=== PATIENT | male | born 1960 | race Caucasian/White ===

== ENCOUNTER 2019-08-07 00:08 | Inpatient (IN) | payer MEDICARE ==
[~2019-08-07] VITALS: Ht 172.7 cm; Wt 78.1 kg
[~2019-08-07 00:08] MED LIST: Adult Low Dose81 MG PO; CELE400; CODACE30 PO; DIAZ5 PO; Glucosamine Ch1 EAC4 PO; HYDACE5325; HYDMOR2 PO; LISI5 PO; LORA10ER PO; MECL25 PO; META800; NAPR500 PO; OMEP20ER PO; OMEP40CA12 PO; RANITIDINE PO; Simvastatin20 MG PO; TRAM50 PO; ZYRTEC10 M1 PO; Zovirax Cream 5%2 GM
[2019-08-07 00:31] LABS: BASOPHILS ABSOLUTE AUTO 0.05 K/mm3 (0.00-0.23); BASOPHILS PERCENT AUTO 1 % (0-2); EOSINOPHILS ABSOLUTE AUTO 0.34 K/mm3 (0.00-0.68); EOSINOPHILS PERCENT AUTO 4 % (0-6); Hematocrit 48.3 % (37.0-53.0); Hemoglobin 15.7 g/dL (13.5-17.5); IMMATURE GRAN ABSOLUTE AUTO 0.04 K/mm3 (0.00-0.10); IMMATURE GRAN PERCENT AUTO 1 % (0-1); LYMPHOCYTES ABSOLUTE AUTO 2.22 K/mm3 (0.84-5.20); LYMPHOCYTES PERCENT AUTO 25 % (21-46); MONOCYTES ABSOLUTE AUTO 1.15 K/mm3 (0.16-1.47); MONOCYTES PERCENT AUTO 13 % (4-13); Mean Corpuscular HGB 29.2 pg (26.0-34.0); Mean Corpuscular HGB Conc 32.5 g/dL (31.5-36.5); Mean Corpuscular Volume 90 fL (80-100); Mean Platelet Volume 10.3 fL (9.1-12.4); NEUTROPHILS ABSOLUTE AUTO 5.04 K/mm3 (1.96-9.15); NEUTROPHILS PERCENT AUTO 57 % (41-73); Platelet Count 253 K/mm3 (150-400); RDW Coefficient Variation 12.9 % (11.7-14.2); RDW Standard Deviation 42.5 fL (35.1-46.3); Red Blood Cell Count 5.37 M/mm3 (4.30-5.90); White Blood Cell Count 8.84 K/mm3 (4.00-11.30)
[2019-08-07 00:48] LABS: Alanine Aminotransfer (ALT/SGP 39 U/L (12-78); Albumin, Blood 3.9 g/dL (3.4-5.0); Albumin/Globulin Ratio 1.1 (0.8-1.8); Alk Phos 98 U/L (50-136); Anion Gap 7 mmol/L (6-16); Aspartate Aminotrans (AST/SGOT 19 U/L (12-37); Bilirubin, Total 0.5 mg/dL (0.1-1.0); Blood Urea Nitrogen 28 mg/dL (8-24); CO2, Blood 27 mmol/L (21-32); Calcium, Blood 9.3 mg/dL (8.5-10.1); Chloride, Blood 108 mmol/L (98-108); Creatinine, Blood 1.22 mg/dL (0.60-1.20); Globulin, Blood 3.5 g/dL (2.2-4.0); Glomerular Filtration Rate >60 (60-); Glucose, Blood 99 mg/dL (70-99); Potassium, Blood 3.8 mmol/L (3.5-5.5); Sodium, Blood 142 mmol/L (136-145); Total Protein, Blood 7.4 g/dL (6.4-8.2); Troponin I <0.015 ng/mL (0.000-0.040)
--- NOTE | 2019-08-07 03:56 | NUR ---
BEGINNING SHIFT SUMMARY ASSUMED CARE OF PT AT 0245. PT IS ALERT AND ORIENTED, POLITE AND COOPERATIVE. HEAR SOUNDS REGULAR, ON TELE AT NSR @ 90 PER FORESTRY TECHNICIAN, PERIPHERAL PULSES STRONG, 18G IV IN L UPPER ARM. FINE CRACKLES AT THE BASES OF LUNGS, DENIES SOB. BOWEL TONES HYPERACTIVE, PT ON NPO FOR STRESS TEST TOMORROW. HX OF SKIN CANCER, GERD, HTN, AND HLD, DENIES HX OF HEART PROBLEMS IN HIS FAMILY. PT CAME TO THE ER BECAUSE HE WAS FEELING PAIN IN HIS CHEST, AFTER TAKING TUMS AND THEN FEELING THE PAIN IN HIS JAW, AND A "FUNNY FEELING" HE DECIDED TO COME TO THE ER. PT IS CURRENTLY TRYING TO FALL ASLEEP AND DENIES CHEST PAIN AT THIS TIME. CALL LIGHT IN REACH, BED IN LOWEST POSITION, WILL CONTINUE TO MONITOR.
--- NOTE | 2019-08-07 04:11 | NUR ---
CHEST PAIN PT CALLED THIS NURSE TO THE ROOM AND REPORTED STARTING HAVE CHEST PAIN HE WAS FALLING ASLEEP. PT STATED THIS WAS THE SAME FEELING HE HAD WHEN HE WAS AT HOME BEFORE HE CANE IN AND ITS MAKING HIM FEEL SICK NOW. PT STATES THE FEELING IS COMING AND GOING. CHARGE NURSE NOTIFIED, EKG IN PROGRESS.
--- NOTE | 2019-08-07 04:26 | NUR ---
EKG RESULTS EKG SHOWED NSR AT 60. PT STILL REPORTS HAVING CHEST PAIN BUT HE STATES IT MIGHT BE MORE LIKE GAS PAIN. PT HX OF GERD. CALL LIGHT IN REACH, BED IN LOWEST POSITION, WILL CONTINUE TO MONITOR.
--- NOTE | 2019-08-07 05:22 | NUR ---
END SHIFT SUMMARY PT STATES DAVE TTHEIR CHEST PAIN HAS GONE GONE DOWN FROM BEFORE. THIS NURSE CALLED THE HOSPITALIST AND SHE SAID TO MEDICATE PER EMAR AND TO CONTINUE TO MONITOR THE PT. PT IS CURRENTLY TRYING TO GO BACK TO SLEEP. CALL LIGHT IN REACH, BED IN LOWEST POSTION, WILL CONTINUE TO MONITOR UNTIL DAYSHIFT NURSE ARRIVES.
--- NOTE | 2019-08-07 09:32 | NUR ---
Chest pain Pt c/o chest pain 4-02/11 after having breakfast. Pt denies SOB, states it radiates down both arms and comes and goes. States "feel like burping" but has not burped. Dr. Montes notified, orders received.
--- NOTE | 2019-08-07 11:35 | NUR ---
Chest pain 04/13 Pt c/o chest pain 04/13. Charge nurse was notified. L/M on Dr. Jamel Montes's phone.
--- NOTE | 2019-08-07 12:19 | NUR ---
Upon responding to a rapid response call, I met patient's son Carlene in the hallway outside patient's room. Carlene is appropriately emotional in reaction to the mass of staff filling patient's room. I distracted Carlene with asking him questions about his upbringing, about patient's life and his relationship with Carlene and about his carlos background. I listened empathically, waited with Carlene until his mother came while patient went to surgery, , I provided companionship and prayer. Carlene responds well and thanks me for the time.
--- NOTE | 2019-08-07 14:23 | NUR ---
PT ARRIVED FROM SOCIAL WORKER DELINQUENCY PREVENTION AT 1406 VIA BED. FTF REPORT RECEIVED FROM JUAN FLORES. PT A&O X 3, CALM AND COOPERATIVE, STATING HE FEELS MUCH BETTER. 139/77, 62, 97% RA, 16. C/O 09/13 IN CHEST. INSTRUCTED PATIENT TO IMMEDIATELY REPORT ANY CHEST DISCOMFORT, NAUSEA, DIAPHORESIS, OR ANY OTHER SYMPTOMS TO NURSING IMMEDIATELY; VERBALIZED UNDERSTANDING. R HAND COOL (EQUAL TO L HAND), CAP REFILL < 3 SECONS. TR BAND INLATED TO 10 ML, SITE WNL, NO HEMATOMA OR BLEEDING NOTED.
--- NOTE | 2019-08-07 14:23 | NUR ---
DR. LOUIE AT BEDSIDE FOR UPDATE WITH PATIENT AND FAMILY. SHOWED PT AND FAMILY IMAGES OF PROCEDURE. EXPLAINED THAT THERE IS DISEASE ON THE L SIDE OF THE HEART WHICH WILL BE MEDICALLY MANAGED AT THIS TIME. PLAN IS FOR CARDIAC REHAB. PROVIDER STATED OK FOR PATIENT TO EAT AND DRINK, WANTS BEDREST WITH BR PRIVILEGES UNTIL TOMORROW MORNING. GAVE VERBAL ORDER FOR TROPONIN TO BE DRAWN NOW, IN 4 HOURS, AND TOMORROW MORNING.
--- NOTE | 2019-08-07 15:10 | NUR ---
CARDIAC ECHO COMPLETE.
--- NOTE | 2019-08-07 15:19 | NUR ---
eCHOCARDIOGRAM COMPLETED.
--- NOTE | 2019-08-07 15:29 | NUR ---
Spiritual care visit conducted. Patient is sitting up in bed and eating a sandwich. Patient's ex-, son, Carlene and niece are bedside. Patient tells me what he remembers from his medical event and surgery. We take time to pray and thank God for the blessing of having the patient with us this afternoon. We also remember the staff that worked so hard on the patient's behalf as well. There is much melvin and laughter in the room. I will continue to remain available to patient and family.
--- NOTE | 2019-08-07 15:52 | NUR ---
SPOKE TO STARLA AT CARDIO-PULMONARY REHAD. SHE STATED IS AWARE OF CONSULT ORDERED.
--- NOTE | 2019-08-07 17:20 | NUR ---
PT C/O 4/10 CP WITH L ARM RADIATION AND SLIGHT NAUSEA. GAVE NTG X 2 DOSES WITH NO RELIEF. THEN GAVE FENTANYL 25 MCG IV WITH ADEQUATE RELIEF. ECG SHOWED NO CHANGES. DR. LOUIE CALLED AT 1718, LEFT MSG WITH NAVDEEP FLORES IN [place] TEAM TRUCK DRIVER. DR LOUIE CAME TO BEDSIDE AT 1730 TO EVALUATE, REQUESTED SECOND ECG. AGAIN NO CHANGES NOTED. PROVIDER STATED IF CP OCCURS AGAIN, OK TO START NTG GTT PER ORDER. AFTER FENTANYL ADMINISTRATION, PT STATED CP RELIEVED. INSTRUCTED PT TO NOTIFY NURSING IF CP REOCCURS OR IF ANY OTHER SXS APPEAR; VERBALIZED UNDERSTANDING.
--- NOTE | 2019-08-07 18:37 | NUR ---
SHIFT SUMMARY: A&O X 4, PLEASANT AND COOPERATIVE. VSS, CURRENTLY DENIES CHEST DISCOMFORT AND NAUSEA. HAS BEEN INSTRUCTED TO NOTIFY NURSING IF CP RETURNS, TO WHICH HE VERBALIZED UNDERSTANDING. HAD SEVERAL FAMILY MEMBERS VISIT. R RADIAL SITE WITHOUT HEMATOMA OR BLEEDING, TR BAND COMPLETELY DEFLATED AT 1745, WRIST BOARD IN PLACE. APPETITE FAIR.
--- NOTE | 2019-08-07 21:30 | NUR ---
ASSUMED PT CARE AT 1915 PT SITTING UP IN BED WITH FAMILY AT BEDSIDE. RIGHT RADIAL ACCESS SITE APPEARS SOFT, NON-TENDER, NO OOZING NOTED. DENIES ANY NUMBNESS/TINGLING TO DISTAL FINGERS. TR BAND REMOVED AND TEGADERM APPLIED. PT EDUCATED ON NOT APPLYING WEIGHT TO WRIST AND COMPLYING WITH RESTRICTIONS. EDUCATED ON RISKS AND COMPLICATIONS OF BENDING AND APPLYING PRESSURE TO SITE. PT DEMONSTRATED UNDERSTANDING. DENIES CHEST PAIN. APPEARS TO BE IN NSR WITH HR 60'S. VSS; SEE FLOWSHEET. CALL LIGHT WITHIN REACH. PT ABLE TO MAKE HIS NEEDS KNOWN.
--- NOTE | 2019-08-08 06:37 | NUR ---
END OF SHIFT SUMMARY PT UP TO CHAIR THIS MORNING AFTER USING URINAL AND BRUSHING TEETH. PT REMAINS ALERT AND ORIENTED AND ABLE TO MAKE NEEDS KNOWN. RIGHT RADIAL ACCESS SITE IS SOFT, NON-TENDER WITH NO OOZING OR HEMATOMA NOTED. PT DENIES ANY NUMBNESS/TINGLING TO DISTAL DIGITS; CAP REFILL ALSO REMAINS <3SEC. RIGHT RADIAL PULSE IS STRONG. PT COMPLIANT WITH NON-WEIGHT BEARING STATUS TO RIGHT WRIST/HAND. PT UNDERSTANDS IMPORTANCE OF KEEPING ARMBOARD IN PLACE. VSS T/O SHIFT. ONE COMPLAINT OF MILD CHEST PAIN THAT RESOLVED ON ITS OWN. NO CHANGE IN EKG RHYTHM; NSR WITH ST ELEVATION; HR 60'S. CALL LIGHT WITHIN REACH; PT IS ABLE TO MAKE HIS NEEDS KNOWN. WILL CONTINUE TO MONITOR UNTIL REPORT IS HANDED OFF TO ONCOMING RN.
--- NOTE | 2019-08-08 08:33 | NUR ---
DR. LOUIE AT BEDSIDE FOR ASSESSMENT. ORDERED RE CHECK BMP TODAY AND TOMORROW AM AND CHANGE TO PCU STATUS. PLAN IS TRANSFER TO PCU AND LIKELY D/C TOMORROW.
--- NOTE | 2019-08-08 08:38 | NUR ---
DR. HERNANDEZ AT BEDSIDE FOR ASSESSMENT. DISCUSSED WITH PATIENT AT LENGTH ABOUT MODIFYING DISEASE RISK FACTORS THROUGH DIET, EXERCISE, AND MEDICATIONS TO PREVENT FURTHER CARDIAC PROBLEMS. ORDERED PROTONIX NOW FOR ACID REFLUX. PLAN IS TO TRANSFER TO PCU AND POSSIBLE D/C TOMORROW.
[2019-08-08 10:12] LABS: Anion Gap 6 mmol/L (6-16); Blood Urea Nitrogen 19 mg/dL (8-24); Bun/Creatinine Ratio 16.5 (12.0-20.0); CO2, Blood 27 mmol/L (21-32); Calcium, Blood 8.9 mg/dL (8.5-10.1); Chloride, Blood 108 mmol/L (98-108); Creatinine, Blood 1.15 mg/dL (0.60-1.20); Glomerular Filtration Rate >60 (60-); Glucose, Blood 93 mg/dL (70-99); Potassium, Blood 4.4 mmol/L (3.5-5.5); Sodium, Blood 141 mmol/L (136-145)
--- NOTE | 2019-08-08 10:17 | NUR ---
GAVE PATIENT HANDOUTS ON METOPROLOL, PLAVIX, AND CARDIAC CATH AFTER CARE. 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 RECOMMENDED WATCHING "FORKS OVER KNIVES" DOCUMENTARY FOR IDEAS ON DIETARY CHANGES THAT HE CAN IMPLEMENT. VERBALIZED GRATITUDE FOR INFORMATION.
--- NOTE | 2019-08-08 13:59 | NUR ---
Patient is sitting on a chair with family sitting around him. They are telling stories and laughing. I am welcomed into the cabazon and get a real sense that part of the story telling is a way of celebrating their life together and the health they have. I listen and highlight the many triumphs and fullness of what they have known and the beauty of the meories yet to be made. I will continue to remain available to patient and family.
--- NOTE | 2019-08-08 17:43 | NUR ---
SHIFT SUMMARY: C/O MINIMAL CHEST DISCOMFORT AT START OF SHIFT, RESOLVED WITHOUT INTERVENTION, IS NOW PAIN FREE. AMBULATED AROUND UNIT X 2, TOLERATED WELL. TOOK SHOWER INDEPENDENTLY. MANY VISIORS TODAY. GOOD APPETITE. CARDIAC RHYTHM STABLE, IN NSR WITH SLIGHT ST ELEVATION. TROPONINS TRENDING DOWN. R RADIAL SITE WNL. PLAN IS FOR LIKELY D/C TOMORROW.
--- NOTE | 2019-08-08 19:24 | NUR ---
Assumed care Assumed care of pt at approx 1915. Pt presents sitting in bed watching TV. Pt appears in no apparent sign of distress, breathing even and unlabored on RA. Pt expressing concern and anxiety regarding being without pt's therapy dog, Alexander. Pt states "i have trouble sleeping without him." Discussed therapeutic options for sleep aids and pt requesting benedryl. Will call provider with request at earliest opportunity. No other acute concerns to note. Will continue to monitor and provide care.
[2019-08-09 05:53] LABS: Anion Gap 4 mmol/L (6-16); Blood Urea Nitrogen 23 mg/dL (8-24); Bun/Creatinine Ratio 19.8 (12.0-20.0); CO2, Blood 25 mmol/L (21-32); Calcium, Blood 8.8 mg/dL (8.5-10.1); Chloride, Blood 108 mmol/L (98-108); Creatinine, Blood 1.16 mg/dL (0.60-1.20); Glomerular Filtration Rate >60 (60-); Glucose, Blood 94 mg/dL (70-99); Potassium, Blood 4.1 mmol/L (3.5-5.5); Sodium, Blood 137 mmol/L (136-145)
--- NOTE | 2019-08-09 06:00 | NUR ---
SHIFT SUMMARY Pt with no acute events overnight. VSS. Denies chest pain or pressure. Breathing even and unlabored on RA. Alert and oriented. SBA in room. uses call light to make needs known. Pt slept on and off this shift. No changes from initial shift assessment. R radial access site remains free from hematoma, soft, nontender. Plans are for probable discharge today, 08/09/19.
--- NOTE | 2019-08-09 07:54 | NUR ---
ASSUMED CARE NOTE: ASSUMED CARE OF PT @ 0700, RECEVIED REPORT FROM DENNIS FLORES. PT IS ALERT AND ORIENTEDX4. PT IS ON RA WITH SPO2 ABOVE 94%. PT DENIES ANY SOB/CP. PT IN NSR WITH HR IN THE 70'S. CATH INSERTION SITE (RIGHT WRIST), FREE FROM HEMATOMA SOFT AND NONTENDER, NO ACTIVE BLEEDING AT SITE. PT SITTING IN CHAIR FOR MEAL. WILL CONTINUE TO MONITOR PT T/O SHIFT.
--- NOTE | 2019-08-09 07:56 | NUR ---
CONTACTED CARDIAC REHAB. THEY WILL INITIATE PROGRAM
[2019-08-09] MEDS ORDERED: PANT40 PO (12:33)
[2019-08-09] MEDS ORDERED: ATOR40TA PO (12:37)
[2019-08-09] MEDS ORDERED: CLOP75 PO (12:38)
[2019-08-09] MEDS ORDERED: METO25ER PO (12:40)
[2019-08-09] MEDS ORDERED: NITR.4SL SL (12:43)
--- NOTE | 2019-08-09 13:30 | NUR ---
DISCHARGE NOTE: PT GIVEN DISCHARGE INSTRUCTIONS AND EDUCATION. PT WAS ABLE TO WALK OUT OF UNIT IND WITH FAMILY MEMBER.
--- NOTE | 2019-08-09 13:31 | NUR ---
UNABLE TO LOCATE PATIENT'S SHIRTS-DESCRIBED BLACK CORD BUTTON DOWN AND T-SHIRT. CHECKED WITH RN FOR 363, NEW PATIENT IN THAT ROOM, NO SHIRTS. CHECKED WITH ER. THEY DON'T HAVE SHIRTS DOWN THERE. PATIENT GIVEN PAPER SCRUB SHIRT. DISCHARGED BY MARK HDEZ AND WALKED OUT OF UNIT WITH HIS FRIEND AT 1331.
== END 2019-08-09 13:30 | disposition home or self-care (01) | DRG 246 ==
LOC: ER 00:08 → MEDS 00:09 → ICUE 00:09 → MEDS 00:09 → ICUE 15:00
PROVIDERS: Emergency Medicine; Internal Medicine Interventional Cardiology; ADMIT Family Medicine
PROC: 027037Z Dilation of Coronary Artery, One Artery with Four or More Drug-eluting Intraluminal Devices, Percutaneous Approach (ICD-10-PCS; principal; 2019-08-07)
PROC: 4A023N7 Measurement of Cardiac Sampling and Pressure, Left Heart, Percutaneous Approach (ICD-10-PCS; 2019-08-07)
PROC: B240ZZ3 Ultrasonography of Single Coronary Artery, Intravascular (ICD-10-PCS; 2019-08-07)
PROC: B2111ZZ Fluoroscopy of Multiple Coronary Arteries using Low Osmolar Contrast (ICD-10-PCS; 2019-08-07)
DX: I21.11 ST elevation (STEMI) myocardial infarction involving right coronary artery (principal); I10 Essential (primary) hypertension; E78.5 Hyperlipidemia, unspecified; Z96.652 Presence of left artificial knee joint; Z96.641 Presence of right artificial hip joint; K21.9 Gastro-esophageal reflux disease without esophagitis; I25.119 Atherosclerotic heart disease of native coronary artery with unspecified angina pectoris
CPT/HCPCS: 36415; 71046; 80048; 80053; 84484; 85025; 85347; 92978; 93005; 93010; 93306; 93458; 99152; 99153; 99285-25; C1725; C1753; C1769; C1874; C1887; C1894; C9600; J0461; J1644; J1650; J2250; J3010; J7030; Q9967

== ENCOUNTER 2019-11-09 04:18 | Inpatient (IN) | payer MEDICARE, OTHER ==
[~2019-11-09] VITALS: Ht 172.7 cm; Wt 73.5 kg
[~2019-11-09 04:18] MED LIST changes: +ATOR40TA PO; +CLOP75 PO; +METO25ER PO; +NITR.4SL SL; +PANT40 PO
[2019-11-09 05:03] LABS: BASOPHILS ABSOLUTE AUTO 0.03 K/mm3 (0.00-0.23); BASOPHILS PERCENT AUTO 0 % (0-2); EOSINOPHILS ABSOLUTE AUTO 0.25 K/mm3 (0.00-0.68); EOSINOPHILS PERCENT AUTO 3 % (0-6); Hematocrit 45.5 % (37.0-53.0); Hemoglobin 14.5 g/dL (13.5-17.5); IMMATURE GRAN ABSOLUTE AUTO 0.02 K/mm3 (0.00-0.10); IMMATURE GRAN PERCENT AUTO 0 % (0-1); LYMPHOCYTES ABSOLUTE AUTO 1.42 K/mm3 (0.84-5.20); LYMPHOCYTES PERCENT AUTO 19 % (21-46); MONOCYTES ABSOLUTE AUTO 0.85 K/mm3 (0.16-1.47); MONOCYTES PERCENT AUTO 12 % (4-13); Mean Corpuscular HGB 28.7 pg (26.0-34.0); Mean Corpuscular HGB Conc 31.9 g/dL (31.5-36.5); Mean Corpuscular Volume 90 fL (80-100); Mean Platelet Volume 10.6 fL (9.1-12.4); NEUTROPHILS ABSOLUTE AUTO 4.81 K/mm3 (1.96-9.15); NEUTROPHILS PERCENT AUTO 65 % (41-73); Platelet Count 254 K/mm3 (150-400); RDW Coefficient Variation 13.1 % (11.7-14.2); Red Blood Cell Count 5.06 M/mm3 (4.30-5.90); White Blood Cell Count 7.38 K/mm3 (4.00-11.30)
[2019-11-09 05:19] LABS: Alanine Aminotransfer (ALT/SGP 39 U/L (12-78); Albumin, Blood 3.6 g/dL (3.4-5.0); Albumin/Globulin Ratio 1.1 (0.8-1.8); Alk Phos 84 U/L (50-136); Anion Gap 5 mmol/L (6-16); Aspartate Aminotrans (AST/SGOT 27 U/L (12-37); Bilirubin, Total 0.6 mg/dL (0.1-1.0); Blood Urea Nitrogen 22 mg/dL (8-24); Bun/Creatinine Ratio 20.8 (12.0-20.0); CO2, Blood 27 mmol/L (21-32); Chloride, Blood 110 mmol/L (98-108); Creatinine, Blood 1.06 mg/dL (0.60-1.20); Globulin, Blood 3.2 g/dL (2.2-4.0); Glomerular Filtration Rate >60 (60-); Glucose, Blood 97 mg/dL (70-99); Sodium, Blood 142 mmol/L (136-145); Total Protein, Blood 6.8 g/dL (6.4-8.2); Troponin I 0.035 ng/mL (0.000-0.040)
[2019-11-09] MEDS ORDERED: Aspir 8181 MG PO (08:09)
[2019-11-09 12:57] LABS: International Normalized Ratio 1.09; Prothrombin Time Results 11.6 Sec (9.7-11.5)
--- NOTE | 2019-11-09 18:20 | NUR ---
SHIFT SUMMARY PT ALERT AND ORIENTED THROUGHOUT THIS SHIFT. PT REPORTS ONLY SLIGHT CP THIS AFTERNOON. PT HAS HAD MULTIPLE VISITORS THROUGHOUT THIS SHIFT. PT INDEPENDENT IN THE ROOM. PT SITTING UP IN BED VISITING.
[2019-11-10 05:39] LABS: BASOPHILS ABSOLUTE AUTO 0.04 K/mm3 (0.00-0.23); BASOPHILS PERCENT AUTO 1 % (0-2); EOSINOPHILS ABSOLUTE AUTO 0.26 K/mm3 (0.00-0.68); EOSINOPHILS PERCENT AUTO 3 % (0-6); Hematocrit 46.6 % (37.0-53.0); IMMATURE GRAN ABSOLUTE AUTO 0.03 K/mm3 (0.00-0.10); IMMATURE GRAN PERCENT AUTO 0 % (0-1); LYMPHOCYTES ABSOLUTE AUTO 1.97 K/mm3 (0.84-5.20); LYMPHOCYTES PERCENT AUTO 23 % (21-46); MONOCYTES ABSOLUTE AUTO 0.79 K/mm3 (0.16-1.47); MONOCYTES PERCENT AUTO 9 % (4-13); Mean Corpuscular HGB 28.7 pg (26.0-34.0); Mean Corpuscular HGB Conc 32.2 g/dL (31.5-36.5); Mean Corpuscular Volume 89 fL (80-100); Mean Platelet Volume 10.5 fL (9.1-12.4); NEUTROPHILS ABSOLUTE AUTO 5.34 K/mm3 (1.96-9.15); NEUTROPHILS PERCENT AUTO 63 % (41-73); Platelet Count 258 K/mm3 (150-400); RDW Coefficient Variation 13.2 % (11.7-14.2); RDW Standard Deviation 42.9 fL (35.1-46.3); Red Blood Cell Count 5.22 M/mm3 (4.30-5.90); White Blood Cell Count 8.43 K/mm3 (4.00-11.30)
[2019-11-10 06:01] LABS: Albumin, Blood 3.5 g/dL (3.4-5.0); Anion Gap 5 mmol/L (6-16); Blood Urea Nitrogen 18 mg/dL (8-24); Bun/Creatinine Ratio 18.1 (12.0-20.0); CO2, Blood 27 mmol/L (21-32); Calcium, Blood 8.8 mg/dL (8.5-10.1); Chloride, Blood 109 mmol/L (98-108); Glomerular Filtration Rate >60 (60-); Glucose, Blood 102 mg/dL (70-99); Phosphorus, Blood 3.3 mg/dL (2.5-4.9); Potassium, Blood 4.4 mmol/L (3.5-5.5); Sodium, Blood 141 mmol/L (136-145); Troponin I 0.294 ng/mL (0.000-0.040)
--- NOTE | 2019-11-10 08:00 | NUR ---
SUMMARY PT MADE NPO AT MIDNIGHT ORDERED. PT HAD NO ISSUES NOTED UNTIL THIS AM. PT WOKE W/ CX PAIN AND TOOK OWN NTG W/ RELIEF. ECG DONE ORDERED AND DR VAZQUEZ CALLED. PROVIDER ORDERED TO CONTINUE TO MONITOR. PT LATER HAD ANOTHER EPISODE OF CX PAIN AND TX X2 NTG W/ NO RELIEF. PRODUCT COORDINATOR ACTIVATED. PT BECAME PALE, COOL AND DIOPHRETIC. PT HAS BEEN ON HEPRIN DRIP ORDERED T/O SHIFT. PRODUCT COORDINATOR ARRIVED TO ROOM AND ASSUMED CARE. PT TX AND MOVED TO PCU FOR CONTINUED TREATMENT.
--- NOTE | 2019-11-10 14:04 | NUR ---
UPDATE Assumed care of pt upon arrival to PCU 9 at 0926 from track repair laborer. Pt arrived with right transradial site dressed with TR band. 11 mL air in band per report. Site has scant amount of dried red drainage. No hematoma noted. Upon arrival to unit, pt on room air. Denies chest pain or shortness of breath. Color, sensation, pulses, capillary refill equal BUE.
--- NOTE | 2019-11-10 19:24 | NUR ---
SUMMARY No changes to TR site since initial assessment. TR band removed at 1500. Teg[address]erm in place. Wrist immobilization board in place. Pt independent in room. SR per telemetry. Bedside report given to oncoming RNs Rhoda.
--- NOTE | 2019-11-10 20:07 | NUR ---
REPORT RECEIVED FROM MARK KOCH. PT AWAKE, ALERT, ORIENTED X3. NO COMPLAINTS OF PAIN. HRR, NO EDEMA NOTED. RIGHT WRIST PUFFY PROXIMAL TO ANGIO CATH INSERTION SITE. 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 LUNG SOUNDS CLEAR, DENIES SHORTNESS OF BREATH. ABDOMEN ROUND,SOFT, NON TENDER, BOWEL TONES NOTED X4 QUADRANTS, DENIES NAUSEA. VOIDING WITHOUT DIFFICULTY. MAEW. BED IN LOW POSITION, CALL HAYES WITHIN REACH. IV SITE ON RIGHT FOREARM WITHOUT REDNESS, SWELLING OR TENDERNESS.
[2019-11-11 04:46] LABS: BASOPHILS ABSOLUTE AUTO 0.04 K/mm3 (0.00-0.23); BASOPHILS PERCENT AUTO 1 % (0-2); EOSINOPHILS ABSOLUTE AUTO 0.23 K/mm3 (0.00-0.68); EOSINOPHILS PERCENT AUTO 3 % (0-6); Hematocrit 42.5 % (37.0-53.0); Hemoglobin 13.6 g/dL (13.5-17.5); IMMATURE GRAN ABSOLUTE AUTO 0.01 K/mm3 (0.00-0.10); IMMATURE GRAN PERCENT AUTO 0 % (0-1); LYMPHOCYTES ABSOLUTE AUTO 1.87 K/mm3 (0.84-5.20); LYMPHOCYTES PERCENT AUTO 24 % (21-46); MONOCYTES ABSOLUTE AUTO 0.82 K/mm3 (0.16-1.47); MONOCYTES PERCENT AUTO 11 % (4-13); Mean Corpuscular HGB 28.6 pg (26.0-34.0); Mean Corpuscular Volume 90 fL (80-100); Mean Platelet Volume 10.7 fL (9.1-12.4); NEUTROPHILS PERCENT AUTO 61 % (41-73); Platelet Count 240 K/mm3 (150-400); RDW Coefficient Variation 13.1 % (11.7-14.2); RDW Standard Deviation 43.5 fL (35.1-46.3); Red Blood Cell Count 4.75 M/mm3 (4.30-5.90); White Blood Cell Count 7.67 K/mm3 (4.00-11.30)
[2019-11-11 05:01] LABS: International Normalized Ratio 1.13
[2019-11-11 05:26] LABS: Albumin, Blood 3.2 g/dL (3.4-5.0); Anion Gap 6 mmol/L (6-16); Blood Urea Nitrogen 14 mg/dL (8-24); Bun/Creatinine Ratio 13.3 (12.0-20.0); CO2, Blood 24 mmol/L (21-32); Calcium, Blood 8.5 mg/dL (8.5-10.1); Chloride, Blood 112 mmol/L (98-108); Creatinine, Blood 1.05 mg/dL (0.60-1.20); Glomerular Filtration Rate >60 (60-); Glucose, Blood 92 mg/dL (70-99); Phosphorus, Blood 2.9 mg/dL (2.5-4.9); Sodium, Blood 142 mmol/L (136-145)
--- NOTE | 2019-11-11 06:47 | NUR ---
PT IS ALERT, ORIENTED X3. NO C/O CHEST PAIN THIS SHIFT. RIGHT WRIST PUFFY, BASELINE CMS TO RIGHT HAND AND WRIST. LUNG SOUNDS CLEAR THROUGHOUT, VITAL SIGNS STABLE. IV W/O RST. HEPARIN GTT INFUSING. NO COMPLICATIONS FROM ANTICOAGULATION NOTED. PT VOIDING CLEAR YELLOW URINE, VIA URINAL, QS. MAEW. NO FALL OR INJURY THIS SHIFT. BED IN LOW POSITION, CALL HAYES WITHIN REACH.
--- NOTE | 2019-11-11 07:11 | NUR ---
ASSUMED PATIENT CARE. PATIENT RESTING COMFORTABLY IN BED, EQUAL BILATERAL CHEST RISE WITH BREATH. PATIENT SPEAKING COMFORTABLY WITH NURSING STAFF, NO SIGNS OF ACUTE DISTRESS. WRIST WOUND SITE NON-TENDER AND NO DISCHARGE NOTED. WCTM.
--- NOTE | 2019-11-11 11:53 | NUR ---
Patient is sitting up in bed and alert. Patient tells me about his medical issues, his friend/family support system and his scientology beliefs. Patient states that he is hoping to talk to a Radio Machinist before he is discharged and that he has already asked his RN to make that happen. While we are talking he gets several phone calls. I ask if I could pray for him before another call comes in and he says that he would like that. I listen empathically and provide companionship and prayer. Patient responds well and shows signs of an elevated mood. I will continue to remain available to patient and family.
[2019-11-11] MEDS ORDERED: ATOR40TA PO (14:14)
[2019-11-11] MEDS ORDERED: LISI5 PO (14:14)
[2019-11-11] MEDS ORDERED: BRILINTA90 MG PO (14:15)
--- NOTE | 2019-11-11 15:13 | NUR ---
DISCHARGE DISCHARGE INSTRUCTIONS PROVIDED. IV REMOVED. EDUCATED ON NEW MEDICAITONS. ALL QUESTIONS ANSWERED. PT REFUSED WHEELCHAIR OUT.
== END 2019-11-11 15:50 | disposition home or self-care (01) | DRG 247 ==
LOC: ER 04:18 → MEDS 04:19 → PCU 07:10 → MEDS 07:18 → PCU 12:00 → MEDS 12:00 → PCU 11-10 07:41
PROVIDERS: Emergency Medicine; ADMIT Internal Medicine Gastroenterology
PROC: 027034Z Dilation of Coronary Artery, One Artery with Drug-eluting Intraluminal Device, Percutaneous Approach (ICD-10-PCS; principal; 2019-11-10)
PROC: 4A023N7 Measurement of Cardiac Sampling and Pressure, Left Heart, Percutaneous Approach (ICD-10-PCS; 2019-11-10)
PROC: B2111ZZ Fluoroscopy of Multiple Coronary Arteries using Low Osmolar Contrast (ICD-10-PCS; 2019-11-10)
DX: I21.19 ST elevation (STEMI) myocardial infarction involving other coronary artery of inferior wall (principal); I10 Essential (primary) hypertension; E78.5 Hyperlipidemia, unspecified; I25.2 Old myocardial infarction; M19.90 Unspecified osteoarthritis, unspecified site; I25.10 Atherosclerotic heart disease of native coronary artery without angina pectoris; Z95.5 Presence of coronary angioplasty implant and graft; Z82.49 Family history of ischemic heart disease and other diseases of the circulatory system; Z79.02 Long term (current) use of antithrombotics/antiplatelets; Z79.82 Long term (current) use of aspirin; Z79.899 Other long term (current) drug therapy
CPT/HCPCS: 36415; 71046; 76937; 80053; 80069; 83735; 83880; 84484; 85025; 85347; 85610; 85730; 93005; 93010; 93308; 93321; 93454; 99152; 99153; 99285-25; A9270-GY; C1725; C1769; C1874; C1887; C1894; C9600; C9601; C9606; G0378; J1644; J2250; J2270; J3010; J3246; J3480; J7030; J7040; Q9967

== ENCOUNTER 2020-11-24 06:12 | Day surgery (SDC) | payer MEDICARE, SELFPAY ==
[~2020-11-24] VITALS: Ht 172.7 cm; Wt 73.0 kg
[~2020-11-24 06:12] MED LIST changes: +Aspir 8181 MG PO; +BRILINTA90 MG PO; +EFFIENT10 MG PO
--- NOTE | 2020-11-24 13:01 | NUR ---
2X2 GAUZE DRSG X3 TO ABD CLEAN, DRY AND INTACT. NO VISIBLE DRAINAGE, BRUISING, SWELLING OR ERYTHEMA NOTED ON OR AROUND DRSGS.
--- NOTE | 2020-11-24 13:03 | NUR ---
Discharge instructions reviewed with patient. Patient verbalizes understanding. Copy given to patient to take home. Patient States Post-Procedure ride home has been arranged.
--- NOTE | 2020-11-24 13:04 | NUR ---
GAIT STEADY. PATIENT GIVEN PRESCRIPTION TO FILL.
[2021-03-23] MEDS ORDERED: SIME80CH PO (12:59)
== END 2020-11-24 13:10 | disposition home or self-care (01) ==
LOC: ORSCMMR 06:12 → ORD 07:30 → ORSCMMR 07:30
PROVIDERS: Surgery
PROC: 8E0W4CZ Robotic Assisted Procedure of Trunk Region, Percutaneous Endoscopic Approach (ICD-10-PCS; principal; 2020-11-24 07:30)
PROC: 0YUA4JZ Supplement Bilateral Inguinal Region with Synthetic Substitute, Percutaneous Endoscopic Approach (ICD-10-PCS; principal; 2020-11-24 07:30)
DX: K40.20 Bilateral inguinal hernia, without obstruction or gangrene, not specified as recurrent (principal); I10 Essential (primary) hypertension; E11.9 Type 2 diabetes mellitus without complications; I25.2 Old myocardial infarction; I73.00 Raynaud's syndrome without gangrene; Z79.899 Other long term (current) drug therapy; Z79.82 Long term (current) use of aspirin
CPT/HCPCS: 49650; S2900; A9270; C1781; J0330; J0690; J1885; J2250; J2405; J2704; J2710; J3010; J7120

== ENCOUNTER 2022-02-17 23:21 | Observation (INO) | payer MEDICARE ==
[~2022-02-17] VITALS: Ht 172.7 cm; Wt 75.8 kg
[~2022-02-17 23:21] MED LIST changes: +SIME80CH PO
[2022-02-17 23:57] LABS: BASOPHILS ABSOLUTE AUTO 0.04 K/mm3 (0.00-0.23); BASOPHILS PERCENT AUTO 1 % (0-2); EOSINOPHILS ABSOLUTE AUTO 0.34 K/mm3 (0.00-0.68); EOSINOPHILS PERCENT AUTO 4 % (0-6); Hematocrit 43.6 % (37.0-53.0); Hemoglobin 14.6 g/dL (13.5-17.5); IMMATURE GRAN ABSOLUTE AUTO 0.02 K/mm3 (0.00-0.10); IMMATURE GRAN PERCENT AUTO 0 % (0-1); LYMPHOCYTES ABSOLUTE AUTO 2.28 K/mm3 (0.84-5.20); LYMPHOCYTES PERCENT AUTO 26 % (21-46); MONOCYTES PERCENT AUTO 10 % (4-13); Mean Corpuscular HGB 29.7 pg (26.0-34.0); Mean Corpuscular HGB Conc 33.5 g/dL (31.5-36.5); Mean Corpuscular Volume 89 fL (80-100); NEUTROPHILS PERCENT AUTO 59 % (41-73); Platelet Count 242 K/mm3 (150-400); RDW Coefficient Variation 12.7 % (11.7-14.2); RDW Standard Deviation 41.7 fL (35.1-46.3); Red Blood Cell Count 4.92 M/mm3 (4.30-5.90); White Blood Cell Count 8.78 K/mm3 (4.00-11.30)
[2022-02-18 00:18] LABS: Albumin, Blood 3.6 g/dL (3.4-5.0); Albumin/Globulin Ratio 1.2 (0.8-1.8); Bilirubin, Total 0.4 mg/dL (0.1-1.0); Bun/Creatinine Ratio 20.8 (12.0-20.0); Calcium, Blood 8.8 mg/dL (8.5-10.1); Creatinine, Blood 1.3 mg/dL (0.60-1.20); Potassium, Blood 3.8 mmol/L (3.5-5.5); Total Protein, Blood 6.6 g/dL (6.4-8.2)
--- NOTE | 2022-02-18 06:22 | NUR ---
PT ARRIVES TO THE FLOOR FROM THE ED AT 0600. PT IS A&OX4, AMBLUTORY AND INDEPENDENT. CALL LIGHT WITHIN REACH, BED LOW AND LOCKED. WILL CONTINUE TO MONITOR.
[2022-02-18] MEDS ORDERED: FAMO20 PO (09:29)
[2022-02-18] MEDS ORDERED: METO25ER PO (10:57)
--- NOTE | 2022-02-18 17:07 | NUR ---
SHIFT SUMMARY PT A&O, FOLLOWS COMMANDS. PT AMBULATORY AND INDEPENDENT. STRESS TEST COMPLETED TODAY, PENDING RESULTS STILL. NO C/O CP, NO SOB. TROPONINS COMPLETED, REMAINING STABLE. WILL CONTINUE TO MONITOR. CALL LIGHT WITHIN REACH.
--- NOTE | 2022-02-18 18:01 | NUR ---
AGREE WITH RN NOTES
--- NOTE | 2022-02-19 04:10 | NUR ---
SLEPT WELL OVERNIGHT. ANXIOUS TO BE DISCHARGED SO THAT HE MAY GO HOME AND CARE FOR HIS DOGS WHO ARE IN [place]. NO COMPLAINTS OF CHEST PAIN OR SHORTNESS OF BREATH. SINUS RHYTHM,SINUS HUYEN MID 50'S TO 60'S
[2022-02-19 05:57] LABS: Bun/Creatinine Ratio 22.5 (12.0-20.0); Calcium, Blood 9.6 mg/dL (8.5-10.1); Creatinine, Blood 1.02 mg/dL (0.60-1.20); Potassium, Blood 4.2 mmol/L (3.5-5.5)
--- NOTE | 2022-02-19 10:42 | NUR ---
PER DR. BRYSON'S REQUEST, THIS AUTHOR SPOKE TO DR. MARKS (CARDIOLOGY), ASKED THAT PT'S LEXISCAN FROM YESTERDAY BE READ, D/C PENDING.
[2022-02-19] MEDS ORDERED: LISI5 PO (13:56)
[2022-02-19] MEDS ORDERED: NITR.4SL SL (13:56)
[2022-02-19] MEDS ORDERED: ACET325 PO (13:57)
--- NOTE | 2022-02-19 14:33 | NUR ---
PATIENT DISCAHRGED TO HOME, IS DRIVING HIMSELF. IV SALINE LOCK REMOVED WITHOUT INCIDENT. VERBALIZED UNDERSTANDING OF D/C INSTRUCTIONS, INCLUDING THAT HE WILL NEED TO CALL FOR PCP AND CARDIOLOGY APPOINTMENTS ON MONDAY. DENIES CHEST DISCOMFORT. OFF UNIT AT 1428, DECLINED OFFERED W/C.
== END 2022-02-19 14:24 | disposition home or self-care (01) ==
LOC: ER 23:21 → MEDS 23:22
PROVIDERS: Internal Medicine; Student in an Organized Health Care Education/Training Program; ADMIT Internal Medicine
DX: R07.9 Chest pain, unspecified (principal); I10 Essential (primary) hypertension; E78.5 Hyperlipidemia, unspecified; I25.2 Old myocardial infarction; I25.10 Atherosclerotic heart disease of native coronary artery without angina pectoris; R74.8 Abnormal levels of other serum enzymes; K21.9 Gastro-esophageal reflux disease without esophagitis; R00.1 Bradycardia, unspecified; Z79.82 Long term (current) use of aspirin; Z95.5 Presence of coronary angioplasty implant and graft; Z96.641 Presence of right artificial hip joint
CPT/HCPCS: 36415; 78452; 80048; 80053; 84484; 85025; 93005; 93010; 93017; 96372; 99285-25; A9270; A9500; G0378; J0706; J1650; J2785

== ENCOUNTER 2022-03-31 06:13 | Day surgery (SDC) | payer MEDICARE ==
[~2022-03-31] VITALS: Ht 167.6 cm; Wt 80.0 kg
[~2022-03-31 06:13] MED LIST changes: +ACET325 PO; +FAMO20 PO
--- NOTE | 2022-03-31 09:45 | NUR ---
ATTEMPTED TO RELEASE AIR FROM TR BAND; HOWEVER BLED. TR BAND RE-INFLATED. NO BLEEDING OR HEMATOMA NOTED. VSS. NADN. CALL LIGHT WITHIN REACH.
--- NOTE | 2022-03-31 10:49 | NUR ---
PT GETTING DRESSED AT THIS TIME, R RADIAL SITE STABLE.
--- NOTE | 2022-03-31 10:58 | NUR ---
DISCHARGE REVIEWED WITH PT, VERBALIZES UNDERSTANDING. SALINE LOCK REMOVED WITH CATHETER INTACT. TR BAND REMOVED AND AREA CLEANSED. CLOTH DOT PLACED AND ARM BOARD ON. INSTRUCTED PT TO LEAVE IN PLACE FOR 2 DAYS, VERBALIZES UNDERSTANDING. PT TO PRIVATE VEHICLE PER W/C.
== END 2022-03-31 11:20 | disposition home or self-care (01) ==
LOC: MHTC 06:13
DX: I25.118 Atherosclerotic heart disease of native coronary artery with other forms of angina pectoris (principal); I10 Essential (primary) hypertension
CPT/HCPCS: 76937; 93458; 99152; C1769; C1887; C1894; J1644; J2250; J3010; J7030; J7040; Q9967

== ENCOUNTER 2025-06-02 17:26 | Inpatient (IN) | payer OTHER ==
[~2025-06-02] VITALS: Ht 172.7 cm; Wt 72.0 kg
[2025-06-02 17:47] LABS: BASOPHILS ABSOLUTE AUTO 0.04 K/mm3 (0.00-0.23); BASOPHILS PERCENT AUTO 0 % (0-2); EOSINOPHILS ABSOLUTE AUTO 0.32 K/mm3 (0.00-0.68); EOSINOPHILS PERCENT AUTO 3 % (0-6); Hematocrit 41.5 % (37.0-53.0); Hemoglobin 14.2 g/dL (13.5-17.5); IMMATURE GRAN ABSOLUTE AUTO 0.02 K/mm3 (0.00-0.10); IMMATURE GRAN PERCENT AUTO 0 % (0-1); LYMPHOCYTES ABSOLUTE AUTO 2.45 K/mm3 (0.84-5.20); LYMPHOCYTES PERCENT AUTO 26 % (21-46); MONOCYTES ABSOLUTE AUTO 1.07 K/mm3 (0.16-1.47); MONOCYTES PERCENT AUTO 11 % (4-13); Mean Corpuscular HGB Conc 34.2 g/dL (31.5-36.5); Mean Corpuscular Volume 89 fL (80-100); NEUTROPHILS ABSOLUTE AUTO 5.65 K/mm3 (1.96-9.15); NEUTROPHILS PERCENT AUTO 59 % (41-73); NRBC ABSOLUTE 0.00 K/mm3 (0.00-0.02); NRBC Auto 0.0 /100 WBC (0.0-0.2); Platelet Count 241 K/mm3 (150-400); RDW Coefficient Variation 13.0 % (11.7-14.2); RDW Standard Deviation 42.5 fL (35.1-46.3)
[2025-06-02 18:32] LABS: Alanine Aminotransfer (ALT/SGP 44.0 U/L (12-78); Albumin, Blood 3.7 g/dL (3.4-5.0); Albumin/Globulin Ratio 1.2 (0.8-1.8); Anion Gap 7.0 mmol/L (3-11); Aspartate Aminotrans (AST/SGOT 27.0 U/L (12-37); Bilirubin, Total 0.4 mg/dL (0.1-1.0); Blood Urea Nitrogen 24.0 mg/dL (8-24); CO2, Blood 29.0 mmol/L (21-32); Calcium, Blood 8.9 mg/dL (8.5-10.1); Chloride, Blood 106.0 mmol/L (98-108); Creatinine, Blood 0.94 mg/dL (0.60-1.20); Globulin, Blood 3.2 g/dL (2.2-4.0); Glucose, Blood 103.0 mg/dL (70-99); Potassium, Blood 3.8 mmol/L (3.5-5.5); Sodium, Blood 138.0 mmol/L (136-145); Total Protein, Blood 6.9 g/dL (6.4-8.2)
[2025-06-02] MEDS ORDERED: Ondansetron HCl 2 MG / ML 2ML Vial IV PRN (20:15)
[2025-06-02] MEDS ORDERED: FLU VACC TS2025(65UP)/MF59C/PF 45 MCG/0.5 ML SYRINGE IM SCH (20:20)
[2025-06-02 20:40] LABS: Anti-Xa UFH, PHA Monitoring <0.10 IU/mL; Prothrombin Time Results 11.9 Sec (9.7-11.5)
[2025-06-02] MEDS ORDERED: Heparin Sodium 5000 Units/ML 1ML MDV IV ONE (20:55)
[2025-06-02] MEDS ORDERED: Heparin Sodium,Porcine/0.5 NS 500 ML IV SCH (20:55)
[2025-06-02] MEDS ORDERED: LIPITOR80 MG PO (21:12)
[2025-06-02 21:52] VITALS: BP 132/90
[2025-06-02] MEDS ORDERED: MELATONIN5 M1 PO (22:10)
[2025-06-02] MEDS ORDERED: ZYRTEC10 M2 PO (22:12)
[2025-06-02 23:16] LABS: Influenza A/2009-H1 Not Detected (NOT DETECT); SARS-Cov-2 (COVID-19), BioFire Not Detected (NOT DETECT)
[2025-06-02] MEDS ORDERED: NS 1,000 ML IV SCH (23:30)
[2025-06-03] VITALS (13 sets, daily range): BP systolic 106–149; BP diastolic 65–91
[2025-06-03 04:15] LABS: Hematocrit 39.6 % (37.0-53.0); Hemoglobin 13.2 g/dL (13.5-17.5); Mean Corpuscular HGB Conc 33.3 g/dL (31.5-36.5); Mean Corpuscular Volume 89 fL (80-100); NRBC ABSOLUTE 0.00 K/mm3 (0.00-0.02); NRBC Auto 0.0 /100 WBC (0.0-0.2); Platelet Count 211 K/mm3 (150-400); RDW Coefficient Variation 13.1 % (11.7-14.2); RDW Standard Deviation 42.8 fL (35.1-46.3)
[2025-06-03 04:29] LABS: Anion Gap 5.0 mmol/L (3-11); Blood Urea Nitrogen 24.0 mg/dL (8-24); CO2, Blood 28.0 mmol/L (21-32); Calcium, Blood 8.5 mg/dL (8.5-10.1); Chloride, Blood 109.0 mmol/L (98-108); Creatinine, Blood 0.88 mg/dL (0.60-1.20); Glucose, Blood 89.0 mg/dL (70-99); Magnesium, Blood 2.0 mg/dL (1.6-2.4); Potassium, Blood 3.7 mmol/L (3.5-5.5); Sodium, Blood 138.0 mmol/L (136-145)
[2025-06-03] MEDS ORDERED: Dose Adjust by Pharmacy XX STA ×2 (04:44→11:19)
--- NOTE | 2025-06-03 06:38 | NUR ---
PT STABLE SINCE ADMIT. PT REMAINS CHEST PAIN FREE. PT IS AOX4, SBA/IND D/T IV POLE MANAGEMENT. PT IS TOLERATING IV HEPARIN AND FLUID INFUSION WELL. NO S/S BLEEDING, ANTI-XA LEVELS WNL.
--- NOTE | 2025-06-03 10:10 | NUR ---
Pt had chest pressure with fullness also felt in his throat. EKG was done, and 1 SL NTG given, after which the pt stated that the pressure and fullness were "easing up" and headache was minimal. Declined Tylenol. Took other medications orally without difficulty. B/P remained stable. Dr Farr cardilogist will be here to see the patient this morning.
[2025-06-03] MEDS ORDERED: Verapamil HCL 2.5 MG/ML 2ML Injection ONE (13:36)
[2025-06-03] MEDS ORDERED: Heparin Sodium 1000 Units/ML 10ML MDV ONE ×2 (13:37→14:12)
[2025-06-03] MEDS ORDERED: NS 250 ML IV ONE (13:37)
[2025-06-03] MEDS ORDERED: Nitroglycerin 2 MG/20 ML BTL ONE (13:37)
[2025-06-03] MEDS ORDERED: NS 1,000 ML IV ONE ×2 (13:37→13:47)
[2025-06-03] MEDS ORDERED: FentaNYL Citrate 50 MCG/ML 2 ML Injection ONE (13:47)
[2025-06-03] MEDS ORDERED: Midazolam HCl 1MG / ML 2ML Vial ONE (13:47)
--- NOTE | 2025-06-03 13:55 | NUR ---
UPDATE: PT WENT DOWN TO INSPECT[facility] OR [facility] VIA BED FOR ANGIOGRAM AT APPROX 1345.
[2025-06-03] MEDS ORDERED: NS 1,000 ML IV SCH (15:00)
--- NOTE | 2025-06-03 15:00 | NUR ---
UPDATE: PT TRANSPORTED TO PCU AT APPROX 1500 FOLLOWING ANGIOGRAM. TR BAND ON RIGHT RADIAL SITE. NO BLEEDING, PULSES STRONG DISTAL TO BAND, MINIMAL SWELLING BELOW SITE. BACK OF PTS HAND HAS SIGNIFICANT SWELLING FROM THIS MORNING THAT PT STATES IS NORMAL AND IS DUE TO HX OF WRIST REPLACEMENT. PT CAME DOWN WITH 13 CC REMAINING TO TR BAND SINCE 1445. VSS.
--- NOTE | 2025-06-03 17:02 | NUR ---
SHIFT SUMMARY: PT A/O X4, ABLE TO MAKE NEEDS KNOWN. PT STRENGTH EQUAL BILATERALLY. PT ON ROOM AIR, SATS >95%. REPORTS INTERMITTENT SOB LASTING SECONDS WHILE LYING IN BED. PT HAD AN EPISODE OF CHEST PRESSURE THIS MORNING, RELIEVED BY X1 NITRO. PT HAD ANGIO TODAY, RIGHT RADIAL SITE HAS NO BLEEDING, SWELLING, OR PAIN. PT ABLE TO USE URINAL INDEP, SBA TO BATHROOM DUE TO LINES, CORDS, AND TELE. NS CURRENTLY GOING PER EMAR. PT LYING IN BED, CALL LIGHT WITHIN REACH.
[2025-06-03 18:20] LABS: CHOL/HDL RATIO 1.8; Cholesterol 106 mg/dL (50-200); HDL Cholesterol 59 mg/dL (>39); LDL/HDL RATIO 0.6; Low Density Lipoprotein Chol 34 mg/dL (0-110); Triglycerides 67 mg/dL (30-160); Very Low Density Lipoprot Chol 13 mg/dL (6-32)
[2025-06-03] MEDS ORDERED: Isosorbide Mononitrate 30 MG TABCR PO SCH (19:00)
--- NOTE | 2025-06-03 19:01 | NUR ---
Pt c/o having difficulty catching his breath. NO hypoxia, no supplemental O2 needs. Lung sounds are clear. NO use of accesory muscles. STates he feels that he just can't get enough air through his nares, that he has to take a big gasp breath through his mouth. NO diaphoresis, no distress. Now states that he is having buring sternal pain 3/10 at this time. EKG done, Dr. Farr called and reported pt's situation. New orders received for Imdur and pantoprazole.
--- NOTE | 2025-06-03 19:18 | NUR ---
TR band was fully deflated at 1900 hours.
--- NOTE | 2025-06-03 21:11 | NUR ---
PT WITH TR BAND IN PLACE ON RIGHT RADIAL SITE. NO OOZING, HEMATOMA PRESENT. TR BAND WAS FULLY DEFLATED BEFORE SHIFT CHANGE. THIS RN TO ROOM TO ASSES SITE. TR BAND REMOVED. TEGADERM PLACED OVER SITE. ARMBOARD IN PLACE. EDUCATED PT AND NOT BENDING WRIST, NO PUSHING OFF OR PULLING WITH ARM, AND NOT LIFTING OF OBJECTS. PT NOTED UNDERSTANDING. WILL MONITOR SITE.
[2025-06-04 04:06] VITALS: BP 101/71
[2025-06-04 04:19] LABS: BASOPHILS ABSOLUTE AUTO 0.05 K/mm3 (0.00-0.23); BASOPHILS PERCENT AUTO 1 % (0-2); EOSINOPHILS ABSOLUTE AUTO 0.32 K/mm3 (0.00-0.68); EOSINOPHILS PERCENT AUTO 3 % (0-6); Hematocrit 38.8 % (37.0-53.0); Hemoglobin 13.0 g/dL (13.5-17.5); IMMATURE GRAN ABSOLUTE AUTO 0.05 K/mm3 (0.00-0.10); IMMATURE GRAN PERCENT AUTO 1 % (0-1); LYMPHOCYTES ABSOLUTE AUTO 1.44 K/mm3 (0.84-5.20); LYMPHOCYTES PERCENT AUTO 15 % (21-46); MONOCYTES ABSOLUTE AUTO 1.07 K/mm3 (0.16-1.47); MONOCYTES PERCENT AUTO 11 % (4-13); Mean Corpuscular HGB Conc 33.5 g/dL (31.5-36.5); Mean Corpuscular Volume 91 fL (80-100); NEUTROPHILS ABSOLUTE AUTO 6.93 K/mm3 (1.96-9.15); NEUTROPHILS PERCENT AUTO 70 % (41-73); NRBC ABSOLUTE 0.00 K/mm3 (0.00-0.02); NRBC Auto 0.0 /100 WBC (0.0-0.2); Platelet Count 212 K/mm3 (150-400); RDW Coefficient Variation 13.2 % (11.7-14.2); RDW Standard Deviation 43.3 fL (35.1-46.3)
[2025-06-04 04:38] LABS: Anion Gap 7.0 mmol/L (3-11); Blood Urea Nitrogen 18.0 mg/dL (8-24); CO2, Blood 25.0 mmol/L (21-32); Calcium, Blood 8.4 mg/dL (8.5-10.1); Chloride, Blood 109.0 mmol/L (98-108); Creatinine, Blood 1.04 mg/dL (0.60-1.20); Glucose, Blood 90.0 mg/dL (70-99); Potassium, Blood 4.0 mmol/L (3.5-5.5); Sodium, Blood 137.0 mmol/L (136-145)
--- NOTE | 2025-06-04 06:40 | NUR ---
SHIFT SUMMARY PT A&O X4, CALM, COOPERATIVE TO CARE. SB-SR, 50'S-60'S. HE DENIES CP/PRESSURE, NUMB/TINGLING. SBP STABLE. PT ON RA, SpO2 >92%, HE DENIES ANY SOB. PT S/P ANGIO ON 06/03. RIGHT RADIAL SITE. SITE FULLY RECOVERED. TEGADERM IN PLACE. NO OOZING OR HEMATOMA PRESENT. ARM BOARD IN PLACE. EDUCATION PACKETS ON RADIAL SITE CARE AND POST ANGIOGRAM GIVEN TO PT. NO ACUTE CHANGES T/O SHIFT. PT RESTING IN BED AT THIS TIME. CALL LIGHT IN REACH. WILL MONITOR PT AND REPORT TO ONCOMING RN.
[2025-06-04 07:19] VITALS: BP 108/78
--- NOTE | 2025-06-04 07:58 | NUR ---
Pt is awake, alert, and states that his headache is dissapating. He was given Tylenol for it before 0700. States that he is having bilateral elbow stiffness, swelling, and pain. Ice pack applied to the right elbow, which he says is worse. Right radial artery access site is WNL. Pt denies any chest pressure, aching or other chest/jaw discomfort all night. States that he still feels like he has trouble breathing occasionally. NO respiratory distress/dyspnea noted and no extra oxygen needs at this time. Normal sinus rhythm noted by telemetry. Vital signs are stable.
--- NOTE | 2025-06-04 09:03 | NUR ---
Dr. Farr and Dr. conner here, rounding on pt. Lisinopril dose decreased per cardiology. Discussion with pt decision taken to load the patient with Effient and he will go home on that instead of the Brillinta.
[2025-06-04] MEDS ORDERED: ACET325 PO (09:23)
[2025-06-04] MEDS ORDERED: Isosorbide Mono30 MG PO (09:23)
[2025-06-04] MEDS ORDERED: TICA90TA PO (09:24)
[2025-06-04] MEDS ORDERED: EFFIENT10 MG PO (11:24)
[2025-06-04] MEDS ORDERED: PANT40 PO (11:24)
[2025-06-04] MEDS ORDERED: NITR.4SL SL (11:25)
--- NOTE | 2025-06-04 13:17 | NUR ---
Reviewed discharge instructions and medication regimen with the patient. IV was removed, telemetry off. Pt is dressed and waiting for his girlfriend to give him a ride.
== END 2025-06-04 14:31 | disposition home or self-care (01) | DRG 322 ==
LOC: ER 17:26 → PCU 19:44
PROVIDERS: Nurse Practitioner Acute Care; Student in an Organized Health Care Education/Training Program; ADMIT Internal Medicine
PROC: 027034Z Dilation of Coronary Artery, One Artery with Drug-eluting Intraluminal Device, Percutaneous Approach (ICD-10-PCS; principal; 2025-06-03)
DX: I21.4 Non-ST elevation (NSTEMI) myocardial infarction (principal); K21.9 Gastro-esophageal reflux disease without esophagitis; I10 Essential (primary) hypertension; E78.5 Hyperlipidemia, unspecified; I25.110 Atherosclerotic heart disease of native coronary artery with unstable angina pectoris; Z95.5 Presence of coronary angioplasty implant and graft; Z79.82 Long term (current) use of aspirin; Z79.899 Other long term (current) drug therapy; Z96.641 Presence of right artificial hip joint; Z98.890 Other specified postprocedural states
CPT/HCPCS: 0202U; 36415; 70450; 71046; 71260; 76937; 80048; 80053; 80061; 83735; 84484; 85025; 85027; 85347; 85520; 85610; 85730; 93005; 93010; 93306; 93454; 99152; 99153; 99285-25; A9270; C1725; C1769; C1874; C1887; C1894; C9600; J1644; J2250; J3010; J3246; J7030; J7050; Q9967

== ENCOUNTER 2025-06-19 16:58 | Observation (INO) | payer OTHER ==
[~2025-06-19] VITALS: Ht 175.3 cm; Wt 71.0 kg
[~2025-06-19 16:58] MED LIST changes: +Isosorbide Mono30 MG PO; +LIPITOR80 MG PO; +MELATONIN5 M1 PO; +PANT20 PO; +TICA90TA PO; +ZYRTEC10 M2 PO
[2025-06-19 17:34] LABS: BASOPHILS ABSOLUTE AUTO 0.05 K/mm3 (0.00-0.23); BASOPHILS PERCENT AUTO 1 % (0-2); EOSINOPHILS ABSOLUTE AUTO 0.29 K/mm3 (0.00-0.68); EOSINOPHILS PERCENT AUTO 3 % (0-6); Hematocrit 44.2 % (37.0-53.0); Hemoglobin 14.8 g/dL (13.5-17.5); IMMATURE GRAN ABSOLUTE AUTO 0.04 K/mm3 (0.00-0.10); IMMATURE GRAN PERCENT AUTO 0 % (0-1); LYMPHOCYTES ABSOLUTE AUTO 1.94 K/mm3 (0.84-5.20); LYMPHOCYTES PERCENT AUTO 19 % (21-46); MONOCYTES ABSOLUTE AUTO 1.08 K/mm3 (0.16-1.47); MONOCYTES PERCENT AUTO 11 % (4-13); Mean Corpuscular HGB Conc 33.5 g/dL (31.5-36.5); Mean Corpuscular Volume 90 fL (80-100); NEUTROPHILS ABSOLUTE AUTO 6.87 K/mm3 (1.96-9.15); NEUTROPHILS PERCENT AUTO 67 % (41-73); NRBC ABSOLUTE 0.00 K/mm3 (0.00-0.02); NRBC Auto 0.0 /100 WBC (0.0-0.2); Platelet Count 269 K/mm3 (150-400); RDW Coefficient Variation 13.0 % (11.7-14.2); RDW Standard Deviation 42.4 fL (35.1-46.3)
[2025-06-19 17:53] LABS: Alanine Aminotransfer (ALT/SGP 49.0 U/L (12-78); Albumin, Blood 3.6 g/dL (3.4-5.0); Albumin/Globulin Ratio 1.1 (0.8-1.8); Anion Gap 7.0 mmol/L (3-11); Aspartate Aminotrans (AST/SGOT 24.0 U/L (12-37); Bilirubin, Total 0.4 mg/dL (0.1-1.0); Blood Urea Nitrogen 23.0 mg/dL (8-24); CO2, Blood 28.0 mmol/L (21-32); Calcium, Blood 9.1 mg/dL (8.5-10.1); Chloride, Blood 108.0 mmol/L (98-108); Creatinine, Blood 1.16 mg/dL (0.60-1.20); Globulin, Blood 3.3 g/dL (2.2-4.0); Glucose, Blood 104.0 mg/dL (70-99); Potassium, Blood 3.8 mmol/L (3.5-5.5); Sodium, Blood 139.0 mmol/L (136-145); Total Protein, Blood 6.9 g/dL (6.4-8.2)
[2025-06-19] MEDS ORDERED: Ondansetron HCl 2 MG / ML 2ML Vial IV PRN (21:00)
[2025-06-19] MEDS ORDERED: FLU VACC TS2025(65UP)/MF59C/PF 45 MCG/0.5 ML SYRINGE IM SCH (21:05)
[2025-06-19 22:38] VITALS: BP 110/71
[2025-06-19] MEDS ORDERED: NS 1,000 ML IV SCH (23:30)
--- NOTE | 2025-06-20 01:30 | NUR ---
ADMIT NOTE HANDOFF RECEIVED FROM FIELD CHECKERMARK WALLER. PT ARRIVED TO FLOOR VIA WC. PT ORIENTED TO UNIT. CALL BUTTON WITHIN REACH. TELEMETRY: HUYEN @ 59 BPM. PERSONAL POSSESSIONS WITH PT. IV FLUIDS STARTED.
--- NOTE | 2025-06-20 05:06 | NUR ---
SHIFT SUMMARY PATIENT ADMITTED TO FLOOR THIS SHIFT. PATIENT ALERT AND ORIENTED X4. PATIENT STABLE ON FEET AND INDEPENDENT IN ROOM. PATINET NPO AT MIDNIGHT FOR POSSIBLE ANGIOGRAM WITH POSSIBLE STENT PLACEMENT THIS MORNING. PATIENT RESTING INTERMITTENLY. BED RAILS UP X2. CALL LIGHT WITHIN REACH. BED IN LOWEST POSITION FOR SAFETY.
[2025-06-20 05:28] VITALS: BP 122/80
[2025-06-20 08:02] VITALS: BP 126/87
[2025-06-20] MEDS ORDERED: Enoxaparin 40 MG/0.4 ML SYR SC SCH (09:00)
[2025-06-20 15:48] VITALS: BP 124/89
--- NOTE | 2025-06-20 17:33 | NUR ---
PATIENT NPO FOR HALF DAY WAITING FOR CARDIOLOGY CONSULT. PATIENT SEEN THIS AFTERNOON AFTER THIS RN CALLED FOR FOLLOW UP. PATIENT WILL BE NPO AFTER MIDNIGHT WITH PLANS TO DO A STRESS TEST INSTEAD OF ANOTHER ANGIOGRAM BUT DEPENDING ON THE RESULTS PATIENT MAY STILL GO TO LOCAL DELIVERY DRIVER. PATIENT IS TO HAVE ALL MORNING MEDS WITH THE EXCEPTION OF HIS METOPROLOL IN HOPES TO INCREASE HEART RATE FOR TEST. PATIENT VERBALLY AGREES TO PLAN.
[2025-06-20 19:23] VITALS: BP 128/90
[2025-06-20 23:57] VITALS: BP 116/75
--- NOTE | 2025-06-21 03:53 | NUR ---
SHIFT SUMMARY ADMITTED FOR UNSTABLE ANGINA. FULL CODE. PLAN IS FOR STRESS TEST TODAY. ALL MORNING MEDS TO BE GIVEN, EXCEPT METOPROLOL. CARDIOLOGY IS CONSULTED. PT IS A&O X4, INDEPENDENT, ON RA. HE STATES HE IS STILL EXPERIENCING RANDOM EPISODES OF MILD SOB, HE IS ABLE TO SPEAK DURING THESE EPISODES . NPO SINCE 12 AM. SIGNIFICANT OTHER IS AT BEDSIDE. HX OF SC'S AND STENTS.
[2025-06-21 05:23] LABS: BASOPHILS ABSOLUTE AUTO 0.05 K/mm3 (0.00-0.23); BASOPHILS PERCENT AUTO 1 % (0-2); EOSINOPHILS ABSOLUTE AUTO 0.33 K/mm3 (0.00-0.68); EOSINOPHILS PERCENT AUTO 4 % (0-6); Hematocrit 45.3 % (37.0-53.0); Hemoglobin 15.0 g/dL (13.5-17.5); IMMATURE GRAN ABSOLUTE AUTO 0.02 K/mm3 (0.00-0.10); IMMATURE GRAN PERCENT AUTO 0 % (0-1); LYMPHOCYTES ABSOLUTE AUTO 1.81 K/mm3 (0.84-5.20); LYMPHOCYTES PERCENT AUTO 21 % (21-46); MONOCYTES ABSOLUTE AUTO 0.93 K/mm3 (0.16-1.47); MONOCYTES PERCENT AUTO 11 % (4-13); Mean Corpuscular HGB Conc 33.1 g/dL (31.5-36.5); Mean Corpuscular Volume 91 fL (80-100); NEUTROPHILS ABSOLUTE AUTO 5.57 K/mm3 (1.96-9.15); NEUTROPHILS PERCENT AUTO 64 % (41-73); NRBC ABSOLUTE 0.00 K/mm3 (0.00-0.02); NRBC Auto 0.0 /100 WBC (0.0-0.2); Platelet Count 259 K/mm3 (150-400); RDW Coefficient Variation 13.2 % (11.7-14.2); RDW Standard Deviation 43.8 fL (35.1-46.3)
--- NOTE | 2025-06-21 05:52 | NUR ---
METOPROLOL HELD PER MARK DOUGLAS'S NURSE NOTE AND HANDOFF, ALL MORNING MEDS ARE TO BE GIVEN EXCEPT FOR METOPROLOL.
[2025-06-21 06:04] LABS: Anion Gap 8.0 mmol/L (3-11); Blood Urea Nitrogen 18.0 mg/dL (8-24); CO2, Blood 25.0 mmol/L (21-32); Calcium, Blood 9.2 mg/dL (8.5-10.1); Chloride, Blood 108.0 mmol/L (98-108); Creatinine, Blood 1.04 mg/dL (0.60-1.20); Glucose, Blood 104.0 mg/dL (70-99); Potassium, Blood 3.9 mmol/L (3.5-5.5); Sodium, Blood 137.0 mmol/L (136-145)
[2025-06-21 07:14] VITALS: BP 126/92
[2025-06-21 14:50] VITALS: BP 127/89
[2025-06-21] MEDS ORDERED: Amlodipine Bes2.5 MG PO (14:55)
--- NOTE | 2025-06-21 16:42 | NUR ---
DISCHARGE SUMMARY PATIENT DISCHARGED HOME WITH TO DRIVE. A/O X4. IV REMOVED WITHOUT COMPLICATION. DISCHARGE PACKET GIVEN AND REVIEWED, QUESTIONS ANSWERED, VERBALIZED UNDERSTANDING.
== END 2025-06-21 15:20 | disposition home or self-care (01) ==
LOC: ER 16:58 → MEDS 16:59
PROVIDERS: Emergency Medicine; Student in an Organized Health Care Education/Training Program; ADMIT Student in an Organized Health Care Education/Training Program
DX: R07.89 Other chest pain (principal); I25.10 Atherosclerotic heart disease of native coronary artery without angina pectoris; K21.9 Gastro-esophageal reflux disease without esophagitis; I10 Essential (primary) hypertension; E78.5 Hyperlipidemia, unspecified; R06.02 Shortness of breath; I25.2 Old myocardial infarction; Z79.82 Long term (current) use of aspirin; Z79.899 Other long term (current) drug therapy; Z88.8 Allergy status to other drugs, medicaments and biological substances; Z95.5 Presence of coronary angioplasty implant and graft
CPT/HCPCS: 36415; 71045; 78452; 80048; 80053; 83880; 84484; 85025; 93005; 93010; 93017; 96360; 96361; 99285-25; A9270; A9500; G0378; J2470; J7030